=== PATIENT | female | born 1965 ===

== ENCOUNTER 2018-11-14 10:16 | Emergency (ER) | payer OTHER ==
[2018-11-14 10:54] VITALS: BP 165/86; PULSE 90; RESP 16; TEMP 99; O2SAT 98
--- NOTE | 2018-11-14 11:01 | C.PDOC ---
History Of Present Illness 53 y/o female comes in complaining of a cough for the past 2 days, with some chest congestion. Patient denies fever. Also denies smoking or history of asthma. COUGH X 2 DAYS. +CHEST MAYO. NO FEVER. 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 NEG Time Seen by Provider: 11/14/18 10:37 Chief Complaint (Nursing): Cough, Cold, Congestion History Per: Patient History/Exam Limitations: no limitations Onset/Duration Of Symptoms: Days Current Symptoms Are (Timing): Still Present Past Medical History Reviewed: Historical Data, Nursing Documentation, Vital Signs Vital Signs: Last Vital Signs Temp 99 F 11/14/18 10:44 Pulse 90 11/14/18 10:44 Resp 16 11/14/18 10:44 BP 165/86 H 11/14/18 10:44 Pulse Ox 98 11/14/18 10:44 Family History: States: No Known Family Hx - Social History Hx Alcohol Use: No Hx Substance Use: No - Immunization History Hx Tetanus Toxoid Vaccination: No Hx Influenza Vaccination: No Hx Pneumococcal Vaccination: No Review Of Systems Except As Marked, All Systems Reviewed And Found Negative. Constitutional: Negative for: Fever, Chills Cardiovascular: Positive for: Other (Chest congestion). Negative for: Chest Pain Respiratory: Positive for: Cough. Negative for: Shortness of Breath Gastrointestinal: Negative for: Vomiting Skin: Negative for: Rash Physical Exam - Physical Exam Appears: Non-toxic, In Acute Distress (mild distress) Skin: Warm, Dry Head: Atraumatic, Normacephalic Eye(s): bilateral: Normal Inspection, PERRL, EOMI Ear(s): Bilateral: Normal Oral Mucosa: Moist Throat: Normal, No Erythema, No Exudate, Other (uvula midline) Neck: Supple Chest: Symmetrical Cardiovascular: Rhythm Regular, No Murmur Respiratory: Rhonchi, Other (Wet, nonproductive cough, no retraction) Gastrointestinal/Abdominal: Soft, No Tenderness Extremity: Bilateral: Atraumatic, Normal Color And Temperature, Normal ROM Neurological/Psych: Oriented x3, Normal Speech (speaking full sentences) ED Course And Treatment O2 Sat by Pulse Oximetry: 98 (RA) Pulse Ox Interpretation: Normal Progress Note: Ibuprofen and benzonatate PO given to patient. Disposition Counseled Patient/Family Regarding: Diagnosis, Need For Followup, Rx Given - Disposition Referrals: [facility] [Outside] [facility] [Outside] Disposition: HOME/ ROUTINE Disposition Time: 11:00 Condition: IMPROVED Prescriptions: Azithromycin 250 mg PO DAILY #6 tab Benzonatate [Tessalon Perles] 200 mg PO TID PRN #15 sgl PRN Reason: Cough Ibuprofen [Motrin] 600 mg PO Q6 #30 tab Instructions: Acute Bronchitis, Adult (DC) Forms: [employer] (Italian), Work Excuse Print Language: LAO - Clinical Impression Clinical Impression: Bronchitis - Scribe Statement The provider has reviewed the documentation as recorded by the Nasrin Rodríguez Provider Attestation: All medical record entries made by the Nasrin were at my direction and personally dictated by me. I have reviewed the chart and agree that the record accurately reflects my personal performance of the history, physical exam, medical decision making, and the department course for this patient. I have also personally directed, reviewed, and agree with the discharge instructions and disposition.
== END 2018-11-14 11:09 | disposition home or self-care (01) ==
LOC: C.ER 10:16
DX: J40 Bronchitis, not specified as acute or chronic (principal)